=== PATIENT | male | born 1960 | race Caucasian/White ===

== ENCOUNTER → 2022-06-13 11:10 | Outpatient (BNVA) | payer OTHER, SELFPAY | PROVIDERS: PCP Nurse Practitioner Family; Visit Provider Student in an Organized Health Care Education/Training Program | DX: M65.331 Trigger finger, right middle finger (principal) | CPT/HCPCS: 20550; 99202 ==

== ENCOUNTER 2022-09-03 12:14 | Emergency (ER) | payer MEDICARE, SELFPAY ==
[2022-09-03 12:18] VITALS: BP 122/72; PULSE 65; RESP 18; TEMP 36.2; O2SAT 94; BMI 33.9
--- NOTE | 2022-09-03 12:18 | ED_ITS ---
HPI - Back Pain/Injury General Chief Complaint: Back Pain/Injury Stated Complaint: Sciatic pain Time Seen by Provider: 09/03/22 12:18 Source: patient Mode of arrival: ambulatory History of Present Illness HPI Narrative: 61-year-old male with past medical history of HLD, JEOVANNY, diabetes, sciatica, presenting to the ED complaining of low back pain radiating down left lower extremity x 11 days. States his sciatica is flaring s/p lifting his friend off the ground few days ago. Denies direct injury/trauma or fall, numbness, tingling, weakness, urine incontinence/retention, fever MD elicited complaint: back pain Onset (ago): day(s) Related Data Home Medications Medication Instructions Recorded Confirmed aspirin 81 mg tablet,delayed 81 mg PO DAILY 06/13/22 release atenolol 25 mg tablet 25 mg PO DAILY 06/13/22 atorvastatin 80 mg tablet 80 mg PO BEDTIME 06/13/22 baclofen 10 mg tablet 10 mg PO TID PRN 06/13/22 cholecalciferol (vitamin D3) 50 50 mcg PO DAILY 06/13/22 mcg (2,000 unit) tablet duloxetine 30 mg capsule,delayed 30 mg PO DAILY 06/13/22 release ezetimibe 10 mg tablet 10 mg PO DAILY 06/13/22 gabapentin 300 mg capsule 300 mg PO TID 06/13/22 lamotrigine 150 mg tablet 150 mg PO BID 06/13/22 lisinopril 2.5 mg tablet 2.5 mg PO DAILY 06/13/22 lorazepam 0.5 mg tablet 0.5 mg PO DAILY PRN 06/13/22 melatonin 5 mg capsule 5 mg PO BEDTIME 06/13/22 quetiapine 100 mg tablet 50 mg PO BEDTIME 06/13/22 sildenafil 50 mg tablet 50 mg PO DAILY PRN 06/13/22 Previous Rx's Medication Instructions Recorded prednisone 20 mg tablet 40 mg PO DAILY 5 days #10 tabs 09/03/22 Allergies Allergy/AdvReac Type Severity Reaction Status Date / Time Sulfa (Sulfonamide Allergy Unknown HIVES Unverified 06/13/22 11:15 Antibiotics) [SULFA (SULFONAMIDE ANTIBIOTICS)] varenicline Allergy Unknown Anaphylaxis Verified 06/13/22 11:15 From [facility] Allergy Unknown THROAT Uncoded 06/13/22 11:15 TONGUE SWELLING Review of Systems Review of Systems: Constitutional: No Fever, No Chills ENT/Mouth: No Ear Pain, No Nasal Congestion, No Sinus Pain, No Hoarseness, No sore throat, No Rhinorrhea, No Swallowing Difficulty Cardiovascular: No Chest Pain, No SOB Respiratory: No Cough, No Sputum, No Wheezing Gastrointestinal: No Nausea, No Vomiting, No Diarrhea, No Constipation, No Abdominal pain Genitourinary: No Dysuria, No Urinary Frequency, No Hematuria, No Urinary Incontinence/retention, No Urgency, No Flank Pain Musculoskeletal: + joint pain, No Myalgias, No Joint Swelling Skin: No Skin Lesions, No rash Neuro: No Weakness, No Numbness, No Paresthesias Yes all other systems are reviewed and are negative Constitutional: Constitutional: Reports as per [facility] Past Medical History Attestation statement: The following information was validated with the patient. Medical History Dyslipidemia Erectile dysfunction Major depression, recurrent Nicotine dependence Nontoxic thyroid nodule JEOVANNY (obstructive sleep apnea) Type 2 diabetes mellitus Surgical History History of back surgery History of shoulder surgery History of surgery Hx of CABG Hx of hernia repair Family History Family History Mother Colon cancer Liver cancer Father Medical history unknown Maternal Uncle Coronary artery disease Myocardial infarction Epilepsy Maternal Grandmother Type 2 diabetes mellitus Maternal Grandfather Respiratory abnormalities Brother Arthritis Stomach disorder Social History Social History Alcohol intake: former Year quit: 22y Patient Tobacco Use Status: Current everyday Tobacco user Cigarette Packs Per Day: 0.5 service: Yes Current occupational status: retired Physical Exam Vital Signs: Vital Signs: Last Vital Signs Temp 97.1 F 09/03/22 12:18 Pulse 65 09/03/22 12:18 Resp 18 09/03/22 12:18 BP 137/103 H 09/03/22 12:18 Pulse Ox 94 09/03/22 12:18 O2 Del Method 09/03/22 12:18 BMI result Body Mass Index 33.9 Const: General: cooperative, healthy appearing and no acute distress Orientation/consciousness: patient oriented x3 Limitations: no limitations HEENT: Head: Yes normal to inspection and Yes atraumatic Ears: hearing grossly normal bilaterally General nose exam: Normal external nose present Face and sinus: Yes normal facial exam Eyes: General: appearance normal, both eyes and all related structures EOM: EOMs intact bilaterally Neck: Neck: Yes normal visual inspection and Yes no meningeal signs Resp: Effort & Inspection: normal respiratory effort and no respiratory distress Cardio: Rate: regular rate Heart sounds: S1 normal heart sound present and S2 normal heart sound present GI: Inspection: Yes normal to inspection Palpation (GI): Soft to palpation, nontender, no guarding and not rigid Back/Spine/Pelvis: Other: No midline thoracic/lumbar spinous tenderness/step-off or deformity. Pain not reproducible on exam Skin: Rashes: no rashes Wounds: no wounds Neuro: Other: Strength intact throughout. No saddle anesthesia. Sensation intact to light touch. Neurovascular intact distally General: patient oriented x3, gait normal, tone normal, moves all extremities, no meningeal signs and no focal motor deficits Gait exam (Neuro): Normal gait present Motor exam (neuro): 5/5 motor strength present throughout Extrem: General: Yes normal to inspection Medical Decision Making Medical Decision Making MDM Narrative: 61-year-old male with past medical history of HLD, JEOVANNY, diabetes, sciatica, presenting to the ED complaining of low back pain radiating down left lower extremity x 11 days. On exam vital signs stable, NAD/nontoxic appearance, no midline spinous tenderness throughout or red flag symptoms. Patient already taking baclofen and Lidoderm patches. Requesting prednisone. Concern for sciatica res MSK pain/strain. Low suspicion for cauda equina, cord compression, epidural abscess or fracture plan: Pain control, PCP follow-up Differential Diagnosis Differential Diagnoses: The differential diagnosis associated with the presentation includes as above Prescription Management I considered prescription management with: Pain Medication Chronic Conditions Patient?s care impacted by: Diabetes and Hypertension Discharge Plan Discharge Clinical Impression: Sciatica Patient Disposition: Home, Self-Care Instructions: Sciatica (ED) Additional Instructions: Your pain is likely musculoskeletal/your sciatica Continue taking previously prescribed muscle relaxer and lidocaine patches. Prednisone as a steroid will help with inflammation. Have close follow-up with your doctor In addition take Tylenol at home If symptoms persist or worsen, pain becomes unbearable, you developed urinary retention or incontinence, or weakness return to the ED Prescriptions: New prednisone 20 mg tablet 40 mg PO DAILY 5 Days Qty: 10 0RF No Action aspirin 81 mg tablet,delayed release (DR/EC) 81 mg PO DAILY atenolol 25 mg tablet 25 mg PO DAILY atorvastatin 80 mg tablet 80 mg PO BEDTIME baclofen 10 mg tablet 10 mg PO TID PRN gabapentin 300 mg capsule 300 mg PO TID lamotrigine 150 mg tablet 150 mg PO BID lisinopril 2.5 mg tablet 2.5 mg PO DAILY lorazepam 0.5 mg tablet 0.5 mg PO DAILY PRN melatonin 5 mg capsule 5 mg PO BEDTIME sildenafil 50 mg tablet 50 mg PO DAILY PRN Rx Instructions: administer 30 minutes to 4 hours before activity cholecalciferol (vitamin D3) 50 mcg (2,000 unit) tablet 50 mcg PO DAILY duloxetine 30 mg capsule,delayed release(DR/EC) 30 mg PO DAILY ezetimibe 10 mg tablet 10 mg PO DAILY quetiapine 100 mg tablet 50 mg PO BEDTIME Referrals: Daria Guerin NP [Primary Care Provider] - 1 week
== END 2022-09-03 12:36 | disposition home or self-care (01) ==
PROVIDERS: Emergency Provider Student in an Organized Health Care Education/Training Program; PCP Nurse Practitioner Family
DX: M54.42 Lumbago with sciatica, left side (principal); E11.9 Type 2 diabetes mellitus without complications; I10 Essential (primary) hypertension; E78.5 Hyperlipidemia, unspecified; F17.210 Nicotine dependence, cigarettes, uncomplicated; Z79.82 Long term (current) use of aspirin; Z79.02 Long term (current) use of antithrombotics/antiplatelets; Z79.899 Other long term (current) drug therapy
CPT/HCPCS: 99282; 99283

== ENCOUNTER 2023-05-13 15:23 | Emergency (ER) | payer MEDICARE, SELFPAY | END 2023-05-13 16:38 | disposition left against medical advice (07) | PROVIDERS: Emergency Provider Emergency Medicine | DX: M79.646 Pain in unspecified finger(s) (principal) ==

== ENCOUNTER 2023-07-13 16:44 | Emergency (ER) | payer MEDICARE, SELFPAY ==
--- NOTE | ~2023-07-13 | XR_ITS ---
EXAMINATION: XR ANKLE, LEFT CLINICAL INFORMATION: Fracture COMPARISON: Images earlier today TECHNIQUE: AP, lateral, and mortise views of the left ankle. FINDINGS: Patient is in a plaster splint which obscures fine bony detail. Transverse oriented medial malleolus fracture is again noted to be laterally displaced although slightly improved from earlier today the obliquely oriented fracture through the distal fibula is also slightly less laterally displaced. There is mild valgus angulation of the tibiotalar joint space but overall the alignment has significantly improved from earlier today especially in the anterior posterior position. Prominent calcaneal heel spurs seen at the attachment point of the plantar aponeurosis and Achilles tendon. XR/XR ankle LT 2V IMPRESSION: Improved alignment from earlier today. There is persistent lateral displacement of the distal tibial and fibular fractures.
--- NOTE | ~2023-07-13 | XR_ITS ---
EXAMINATION: XR ANKLE, LEFT CLINICAL INFORMATION: Postreduction radiograph COMPARISON: Same day prior radiographs TECHNIQUE: Two views of the left ankle. XR/XR ankle LT min 3V FINDINGS/IMPRESSION: Overlying cast material obscures fine osseus detail. Again seen are displaced bimalleolar fractures with persistent malalignment and dislocation of the tibia with respect to the talus and worsening widening of the distal tibiofibular syndesmosis.
--- NOTE | ~2023-07-13 | XR_ITS ---
EXAMINATION: XR foot LT min 3V, XR ankle LT min 3V CLINICAL INFORMATION: Reason for Exam left ankle/foot pain s/p fall COMPARISON: None. TECHNIQUE: AP, lateral, and oblique views of the foot and ankle FINDINGS: Acute transversely oriented displaced medial malleolus fracture with lateral subluxation of the tibia with respect to the talus. Acute obliquely oriented mildly displaced fracture of the lateral malleolus. Well-corticated osseous fragment adjacent to the tip of the medial malleolus may reflect sequelae of prior more remote avulsion injury. Mild degenerative changes of the first metatarsophalangeal joint with small osteophytes. Soft tissue swelling about the ankle. No definite tibiotalar joint effusion. XR/XR ankle LT min 3V IMPRESSION: 1. Acute transversely oriented displaced medial malleolus fracture with lateral subluxation of the tibia with respect to the talus. 2. Acute obliquely oriented mildly displaced fracture of the lateral malleolus. Soft tissue swelling about the ankle. 3. Well-corticated osseous fragment adjacent to the tip of the medial malleolus may reflect sequelae of prior more remote avulsion injury. 4. Mild degenerative changes of the first metatarsophalangeal joint with small osteophytes.
--- NOTE | ~2023-07-13 | XR_ITS ---
EXAMINATION: XR foot LT min 3V, XR ankle LT min 3V CLINICAL INFORMATION: Reason for Exam left ankle/foot pain s/p fall COMPARISON: None. TECHNIQUE: AP, lateral, and oblique views of the foot and ankle FINDINGS: Acute transversely oriented displaced medial malleolus fracture with lateral subluxation of the tibia with respect to the talus. Acute obliquely oriented mildly displaced fracture of the lateral malleolus. Well-corticated osseous fragment adjacent to the tip of the medial malleolus may reflect sequelae of prior more remote avulsion injury. Mild degenerative changes of the first metatarsophalangeal joint with small osteophytes. Soft tissue swelling about the ankle. No definite tibiotalar joint effusion. XR/XR foot LT min 3V IMPRESSION: 1. Acute transversely oriented displaced medial malleolus fracture with lateral subluxation of the tibia with respect to the talus. 2. Acute obliquely oriented mildly displaced fracture of the lateral malleolus. Soft tissue swelling about the ankle. 3. Well-corticated osseous fragment adjacent to the tip of the medial malleolus may reflect sequelae of prior more remote avulsion injury. 4. Mild degenerative changes of the first metatarsophalangeal joint with small osteophytes.
--- NOTE | ~2023-07-13 | XR_ITS ---
EXAMINATION: XR ANKLE, LEFT CLINICAL INFORMATION: Post reduction ankle pain/fracture COMPARISON: Left ankle radiograph from 07/13/2023 None available. TECHNIQUE: AP, lateral, and mortise views of the left ankle. FINDINGS: Status post interval casting which obscures fine osseous and soft tissue detail. Redemonstration of fractures involving the medial malleolus and distal fibular diaphysis. There has been increased displacement of the distal tibia dorsally in relation to the talus as well, widening of the distal tibial fibular syndesmosis, and displacement of fracture fragments. Soft tissue swelling overlying the ankle. Plantar calcaneal heel spur. Achilles tendon enthesopathy. XR/XR ankle LT min 3V IMPRESSION: 1. Status post interval casting which obscures fine osseous and soft tissue detail. 2. Redemonstration of fractures involving the medial malleolus and distal fibular diaphysis. 3. Increased displacement of the distal tibia dorsally in relation to the talus as well, widening of the distal tibial fibular syndesmosis, and displacement of fracture fragments of the medial malleolus and distal fibula.
--- NOTE | 2023-07-13 16:59 | ED_ITS ---
HPI - Extremity Injury (Lower) General Chief Complaint: Extremity Injury, Lower Stated Complaint: ? left ankle fracture, fall down the stairs Time Seen by Provider: 07/13/23 18:24 Source: patient and RN notes reviewed Mode of arrival: ambulatory Limitations: no limitations History of Present Illness HPI Narrative: This is a 62-year-old male, with a history of dyslipidemia, JEOVANNY, type 2 diabetes, hypertension, presenting to the emergency department with complaints of left ankle pain status post mechanical fall which occurred this afternoon. Patient states that he accidentally slipped and fell down 5 steps. He immediately had pain in his left ankle. He has been unable to bear weight on his left ankle. Denies head strike or loss of consciousness. He is not on blood thinners. No history trauma to his left ankle in the past. No other complaints or concerns at this time. MD complaint: ankle injury Onset (ago): day(s) Injury: Right: ankle Type of Injury: inversion Place: home Severity: severe Relieving factors: nothing Exacerbating factors: weight bearing Associated symptoms: snap/pop sensation and swelling Other symptoms: none Related Data Home Medications Medication Instructions Recorded Confirmed aspirin 81 mg tablet,delayed 81 mg PO DAILY 06/13/22 release atenolol 25 mg tablet 25 mg PO DAILY 06/13/22 atorvastatin 80 mg tablet 80 mg PO BEDTIME 06/13/22 baclofen 10 mg tablet 10 mg PO TID PRN 06/13/22 cholecalciferol (vitamin D3) 50 50 mcg PO DAILY 06/13/22 mcg (2,000 unit) tablet duloxetine 30 mg capsule,delayed 30 mg PO DAILY 06/13/22 release ezetimibe 10 mg tablet 10 mg PO DAILY 06/13/22 gabapentin 300 mg capsule 300 mg PO TID 06/13/22 lamotrigine 150 mg tablet 150 mg PO BID 06/13/22 lisinopril 2.5 mg tablet 2.5 mg PO DAILY 06/13/22 lorazepam 0.5 mg tablet 0.5 mg PO DAILY PRN 06/13/22 melatonin 5 mg capsule 5 mg PO BEDTIME 06/13/22 quetiapine 100 mg tablet 50 mg PO BEDTIME 06/13/22 sildenafil 50 mg tablet 50 mg PO DAILY PRN 06/13/22 Previous Rx's Medication Instructions Recorded prednisone 20 mg tablet 40 mg (2 x 20 mg) PO DAILY 5 days 09/03/22 #10 tabs oxycodone 5 mg tablet 5 mg PO Q6H PRN severe pain (scale 07/13/23 score 7-10) #12 tabs Allergies Allergy/AdvReac Type Severity Reaction Status Date / Time Sulfa (Sulfonamide Allergy Unknown HIVES Verified 07/13/23 16:59 Antibiotics) [SULFA (SULFONAMIDE ANTIBIOTICS)] varenicline Allergy Unknown Anaphylaxis Verified 07/13/23 16:59 From [facility] Allergy Unknown THROAT Uncoded 06/13/22 11:15 TONGUE SWELLING Review of Systems 2 Review of Systems: Yes all other systems are reviewed and are negative Constitutional: Constitutional: Reports as per [facility] Past Medical History Attestation statement: The following information was validated with the patient. Medical History Type 2 diabetes mellitus JEOVANNY (obstructive sleep apnea) Nontoxic thyroid nodule Nicotine dependence Major depression, recurrent Erectile dysfunction Dyslipidemia Surgical History Hx of hernia repair Hx of CABG History of shoulder surgery History of back surgery History of surgery Family History Family History Mother Colon cancer Liver cancer Father Medical history unknown Maternal Uncle Coronary artery disease Myocardial infarction Epilepsy Maternal Grandmother Type 2 diabetes mellitus Maternal Grandfather Respiratory abnormalities Brother Arthritis Stomach disorder Social History Social History Alcohol intake: former Year quit: 22y Patient Tobacco Use Status: Current everyday Tobacco user Cigarette Packs Per Day: 0.5 Advance Directives: No Advance Directives Information Provided: No service: Yes Current occupational status: retired Physical Exam 2 Vital Signs: Vital Signs: Last Vital Signs Temp 97.8 F 07/13/23 17:00 Pulse 73 07/13/23 19:36 Resp 16 07/13/23 20:56 BP 127/77 07/13/23 19:36 Pulse Ox 97 07/13/23 19:36 O2 Del Method Room Air 07/13/23 19:36 BMI result Body Mass Index 35.2 Const: General: cooperative, comfortable and no acute distress O rientation/consciousness: patient oriented x3 Limitations: no limitations HEENT: Head: Yes normal to inspection, Yes normocephalic and Yes atraumatic Ears: hearing grossly normal bilaterally General nose exam: Normal external nose present Face and sinus: Yes normal facial exam Mouth: Normal oral and palatal mucosa present, oropharynx normal and moist mucous membranes Throat: Yes posterior oropharynx normal Eyes: General: appearance normal, both eyes and all related structures E yelids: Yes eyelids normal Conjunctivae: conjunctivae normal Sclerae: s clerae normal Pupils: Equal, round and reactive pupils present EOM: EOMs intact bilaterally Neck: Neck: Yes normal visual inspection, Yes full ROM and Yes no lymphadenopathy Lymphatic: no lymphadenopathy noted Chest: Chest palpation & inspection: normal inspection of the chest Resp: Effort & Inspection: normal respiratory effort and able to speak in complete sentences Auscultation: clear to auscultation bilaterally, no crackles, no rales, no rhonchi and no wheezes Cardio: Rate: regular rate Rhythm: regular rhythm Heart sounds: S1 normal heart sound present and S2 normal heart sound present GI: Inspection: Yes normal to inspection Skin: General skin exam: no rashes or lesions noted Trauma: no lacerations or abrasions Wounds: no wounds Neuro: General: patient oriented x3 and moves all extremities Cranial nerves: Yes Equal, round and reactive pupils present Extrem: Other: Obvious bony deformity noted to the lateral and medial malleoli. TTP to the Distal fibula. Distal pulse 2 + capillary refill less than 2 seconds. Able to wiggle toes. General: Yes normal to inspection Right upper extremity: normal to inspection Left upper extremity: normal to inspection Right lower extremity: normal to inspection Left lower extremity: normal to inspection Course Reevaluation(s) Reevaluation #1: Spoke to Dr. Murguia, hospitalist who states that he cannot admit if orthopedics is not going to do anything. He can stay in the ER for pain/Case Management if orthopedics is not willing to come in. Dr. Diane is requesting Orthopedics to come in to do reduction. Time: 19:17 Reevaluation #2: Two attempts made by my colleague Marco A Colon. During the hematoma block the distal tibia appear to be dislocated even without any interventions or traction. See joint reduction procedure note for further detail. This was done twice however still illustrating distal tibia displacement. I discussed this with Adwoa Wallace PA-C who reach out to Dr. Bobby. Dr. Bobby spoke to my attending physician, Dr. Diane, stating that he will be in the emergency room for possible conscious sedation for reduction and to be admitted to their service. Given sign-out to Marco A Colon PA-C pending orthopedic intervention. Time: 21:52 Reevaluation #3: Dr. Bobby, orthopedics came to evaluate the patient and reduce the dislocated fracture itself without any general anesthesia. Patient was placed in a posterior walking spine and or discussion with Orthopedics in the patient, the patient would like to be discharged home will follow-up with orthopedics on Saturday. Time: 22:40 Medications Administered Discontinued Medications Generic Name Dose Route Start Last Admin Trade Name Freq PRN Reason Stop Dose Admin Lidocaine HCl 10 ml 07/13/23 19:45 07/13/23 20:21 Lidocaine Hcl 1 % Mpf 30 Ml Vial INTRAARTIC 07/13/23 19:46 10 ml ONCE ONE Administration Protocol Morphine Sulfate 4 mg 07/13/23 20:52 07/13/23 20:56 Morphine Sulfate 4 Mg/Ml Cartridge IM 07/13/23 20:53 4 mg ONCE ONE Administration Protocol Ondansetron HCl 4 mg 07/13/23 20:52 07/13/23 20:56 Ondansetron Odt 4 Mg Tab.Rapdis TRANSLINGU 07/13/23 20:53 4 mg ONCE ONE Administration Oxycodone HCl 5 mg 07/13/23 19:01 07/13/23 19:32 Oxycodone Hcl Immed Release 5 Mg Tablet PO 07/13/23 19:02 5 mg ONCE ONE Administration Medical Decision Making Medical Decision Making [facility] Narrative: This is a 62-year-old male, with a past medical history of JEOVANNY, diabetes, hyperlipidemia, stent placed in 2011, presenting to the emergency department with complaints of left ankle pain and swelling status post mechanical fall which occurred today. An x-ray was obtained revealing acute transversely oriented displaced medial malleoli fracture with lateral subluxation of the tibia with respect to the talus. There is also an acute obliquely oriented mildly displaced fracture of the lateral malleolus. Also of note well corticated osseous fragment adjacent to the tip of the medial malleolus. I discussed findings with orthopedic PA, Adwoa Wallace, who suggest attempted reduction with splinting and can follow-up outpatient. I discussed this with my attending physician, Dr. Diane, as I believe that patient needs to be admitted or closely followed given significant fracture, she agrees and believes that he needs to be admitted. Differential Diagnosis Differential Diagnoses: The differential diagnosis associated with the presentation includes Fracture, dislocation, sprain, strain, contusion Admission/Observation Consideration of admission/observation: Escalation of care including admission/observation considered Escalation of care including admission was considered given significant fracture Consult Healthcare Provider Management of the patient was discussed with: Hospitalist and Window Shade Installer Dr. Murguia, hospitalist RUMA [address]ont Dr[address] orthopedist Lab Data 07/13/23 21:59 07/13/23 21:59 Labs: Lab Results 07/13/23 Range/Units 21:59 WBC 9.3 (4.8-10.8) X10*3/uL RBC 4.76 (4.60-5.80) X10*6/uL Hgb 14.3 (14.0-18.0) g/dl Hct 42.3 (42.0-52.0) % MCV 88.9 (80.0-98.0) fL MCH 30.0 (27.0-33.0) pg MCHC 33.8 (31.0-36.0) g/dl RDW 14.1 (11.0-16.0) % Plt Count 193 (160-400) X10*3/uL MPV 10.6 (9.4-12.4) fL Immature Gran % (Auto) 0.2 (0.0-0.4) % Neut % (Auto) 57.4 (45-73) % Lymph % (Auto) 34.1 (20-40) % Bibb % (Auto) 6.4 (2-11) % Eos % (Auto) 1.5 (0-4) % Baso % (Auto) 0.4 (0-2) % Lymph # (Auto) 3.2 (1.2-4.9) X10*3/uL Bibb # (Auto) 0.6 (0.1-1.2) X10*3/uL Eos # (Auto) 0.1 (0.0-0.4) X10*3/uL Baso # (Auto) 0.0 (0.0-0.2) X10*3/uL Abs Immat Gran (auto) 0.02 (0.00-0.03) X10*3/uL Absolute Neuts (auto) 5.3 (2.0-8.3) x10*3/uL Absolute Nucleated RBC 0.000 (0.0-0.012) X10*3/uL Nucleated RBC % (auto) 0.0 (0.0-0.2) /100WBC Sodium 139 (135-145) mmol/L Potassium 4.2 (3.3-5.1) mmol/L Chloride 103 (96-108) mmol/L Carbon Dioxide 27 (22-29) mmol/L Anion Gap 13 (12-20) BUN 12 (9-16) mg/dL Creatinine 1.22 (0.5-1.4) mg/dL Estim Creat Clear Calc 69.1 Estimated GFR > 60 Random Glucose 159 H (60-115) mg/dL Calcium 10.0 (8.4-10.2) mg/dL Total Bilirubin 0.5 (0.0-1.0) mg/dL Direct Bilirubin 0.2 (0.0-0.5) mg/dL AST 53 H (5-37) U/L ALT 44 H (0-40) U/L Alkaline Phosphatase 64 (39-117) U/L Total Protein 8.1 H (6.5-8.0) g/dL Albumin 4.5 (3.5-5.0) g/dL Radiology Impression Discussion of test interpretation with radiology: I have reviewed the radiologist's reading. Radiologist Impression: EXAMINATION: XR foot LT min 3V, XR ankle LT min 3V CLINICAL INFORMATION: Reason for Exam left ankle/foot pain s/p fall COMPARISON: None. TECHNIQUE: AP, lateral, and oblique views of the foot and ankle FINDINGS: Acute transversely oriented displaced medial malleolus fracture with lateral subluxation of the tibia with respect to the talus. Acute obliquely oriented mildly displaced fracture of the lateral malleolus. Well-corticated osseous fragment adjacent to the tip of the medial malleolus may reflect sequelae of prior more remote avulsion injury. Mild degenerative changes of the first metatarsophalangeal joint with small osteophytes. Soft tissue swelling about the ankle. No definite tibiotalar joint effusion. XR/XR ankle LT min 3V IMPRESSION: 1. Acute transversely oriented displaced medial malleolus fracture with lateral subluxation of the tibia with respect to the talus. 2. Acute obliquely oriented mildly displaced fracture of the lateral malleolus. Soft tissue swelling about the ankle. 3. Well-corticated osseous fragment adjacent to the tip of the medial malleolus may reflect sequelae of prior more remote avulsion injury. 4. Mild degenerative changes of the first metatarsophalangeal joint with small osteophytes. Dictated By: Danuta Hutchison MD EXAMINATION: XR foot LT min 3V, XR ankle LT min 3V CLINICAL INFORMATION: Reason for Exam left ankle/foot pain s/p fall COMPARISON: None. TECHNIQUE: AP, lateral, and oblique views of the foot and ankle FINDINGS: Acute transversely oriented displaced medial malleolus fracture with lateral subluxation of the tibia with respect to the talus. Acute obliquely oriented mildly displaced fracture of the lateral malleolus. Well-corticated osseous fragment adjacent to the tip of the medial malleolus may reflect sequelae of prior more remote avulsion injury. Mild degenerative changes of the first metatarsophalangeal joint with small osteophytes. Soft tissue swelling about the ankle. No definite tibiotalar joint effusion. XR/XR foot LT min 3V IMPRESSION: 1. Acute transversely oriented displaced medial malleolus fracture with lateral subluxation of the tibia with respect to the talus. 2. Acute obliquely oriented mildly displaced fracture of the lateral malleolus. Soft tissue swelling about the ankle. 3. Well-corticated osseous fragment adjacent to the tip of the medial malleolus may reflect sequelae of prior more remote avulsion injury. 4. Mild degenerative changes of the first metatarsophalangeal joint with small osteophytes. Dictated By: Danuta Hutchison MD EXAMINATION: XR ANKLE, LEFT CLINICAL INFORMATION: Post reduction ankle pain/fracture COMPARISON: Left ankle radiograph from 07/13/2023 None available. TECHNIQUE: AP, lateral, and mortise views of the left ankle. FINDINGS: Status post interval casting which obscures fine osseous and soft tissue detail. Redemonstration of fractures involving the medial malleolus and distal fibular diaphysis. There has been increased displacement of the distal tibia dorsally in relation to the talus as well, widening of the distal tibial fibular syndesmosis, and displacement of fracture fragments. Soft tissue swelling overlying the ankle. Plantar calcaneal heel spur. Achilles tendon enthesopathy. XR/XR ankle LT min 3V IMPRESSION: 1. Status post interval casting which obscures fine osseous and soft tissue detail. 2. Redemonstration of fractures involving the medial malleolus and distal fibular diaphysis. 3. Increased displacement of the distal tibia dorsally in relation to the talus as well, widening of the distal tibial fibular syndesmosis, and displacement of fracture fragments of the medial malleolus and distal fibula. Dictated By: Zahraa Galloway MD EXAMINATION: XR ANKLE, LEFT CLINICAL INFORMATION: Postreduction radiograph COMPARISON: Same day prior radiographs TECHNIQUE: Two views of the left ankle. XR/XR ankle LT min 3V FINDINGS/IMPRESSION: Overlying cast material obscures fine osseus detail. Again seen are displaced bimalleolar fractures with persistent malalignment and dislocation of the tibia with respect to the talus and worsening widening of the distal tibiofibular syndesmosis. Dictated By: Danuta Hutchison MD Procedures Procedure Narrative Procedure Narrative: I was asked to assist with reduction of the left ankle. The I initially locally anesthetize the patient's fibular fracture with a hematoma block. I was able to aspirate dark red blood and injected 5 cc of lidocaine into the hematoma. On the medial aspect of the leg at the location of the tibia fracture regcin to aspirate blood from the hematoma fracture but was unable to do so. I injected 2 cc lidocaine around the area. During this, the patient's foot was supported by a pillow. Prior to any attempt at any reduction, the patient experienced increasing pain and the left tibia appeared to slide anteriorly compared to the distal portion/foot. I immediately removed the pillow and supported the foot to attempt reduction. Clinically, the deformity improved significantly just with gravity by supporting the left great toe and we splinted with a posterior walking splint and sugar-tong. X-ray showed anterior displacement of tibia compared to the foot. And then remove the splints, again reduced the fracture with good clinical improvement. Repeat imaging the foot still appears displaced Orthopedic Joint Reduction Joint #1: Time Out Performed: Yes Side: left Joint Reduction Location: ankle Analgesia: hematoma block Local Anesthesia: lidocaine 1% Amount of anesthesic used (mL): 4 Shoulder Technique Used (if applicable): other (First great toe pulling) Post-reduction neuro exam: intact Post-reduction vascular: intact Post Reduction X-Ray Obtained: Yes Post Reduction X-Ray Results: not reduced Splint Applied: Yes Patient Tolerated Procedure: well Additional Comments: Joint reduction performed by Marco A Colon PA-C. During hematoma block, patient had worsening pain and it appeared that the tibia was becoming displaced. It is unclear whether not pillow underneath foot head cause displacement. However there is no forceful movements that caused this displacement to occur. Slight traction applied by pulling on great toe, it appears that the tibia slowly went back into place. Patient's ankle was splinted and x-ray was performed. X-ray revealing increased displacement of the distal tibia dorsally in relation to the talus and widening of the distal fibular syndesmosis. The splint was removed, and slight traction was applied to great toe again, revealing tibia appearing to be reduced in the proper location, the ankle was splinted and re-x-rayed which still revealed displacement of the distal tibia. Patient neurovascularly intact capillary refill less than 2 seconds. Discharge Plan Discharge Clinical Impression: Bimalleolar fracture of left ankle Patient Disposition: Home, Self-Care Instructions: Ankle Fracture (ED) Additional Instructions: Use ibuprofen/Tylenol as needed for pain Elevate your ankle above your heart while resting Use oxycodone for severe or breakthrough pain This may make you sleepy, did not drink alcohol or drive after taking Follow-up with orthopedics at the number provided You should receive a phone call on Saturday, if you do not, call their office Prescriptions: New oxycodone 5 mg tablet 5 mg PO Q6H PRN (Reason: severe pain (scale score 7-10)) Qty: 12 0RF Rx Instructions: Partial Fill upon patient request. No Action prednisone 20 mg tablet 40 mg PO DAILY 5 Days Qty: 10 0RF aspirin 81 mg tablet,delayed release (DR/EC) 81 mg PO DAILY atenolol 25 mg tablet 25 mg PO DAILY atorvastatin 80 mg tablet 80 mg PO BEDTIME baclofen 10 mg tablet 10 mg PO TID PRN gabapentin 300 mg capsule 300 mg PO TID lamotrigine 150 mg tablet 150 mg PO BID lisinopril 2.5 mg tablet 2.5 mg PO DAILY lorazepam 0.5 mg tablet 0.5 mg PO DAILY PRN melatonin 5 mg capsule 5 mg PO BEDTIME sildenafil 50 mg tablet 50 mg PO DAILY PRN Rx Instructions: administer 30 minutes to 4 hours before activity cholecalciferol (vitamin D3) 50 mcg (2,000 unit) tablet 50 mcg PO DAILY duloxetine 30 mg capsule,delayed release(DR/EC) 30 mg PO DAILY ezetimibe 10 mg tablet 10 mg PO DAILY quetiapine 100 mg tablet 50 mg PO BEDTIME Referrals: Javad Bobby MD [Physician] - (left ankle fracture)
[2023-07-13 17:00] VITALS: BP 90/46; PULSE 63; RESP 20; TEMP 36.6; O2SAT 95; BMI 35.2
[2023-07-13] MEDS: oxyCODONE HCl Immed Release 5 MG TABLET PO (19:32)
[2023-07-13 19:36] VITALS: BP 127/77; PULSE 73; RESP 16; O2SAT 97
[2023-07-13] MEDS: Lidocaine HCl 1 % MPF 30 ML VIAL 10 ML INTRAARTIC (20:21)
--- NOTE | 2023-07-13 20:33 | PC.NURSE ---
landon su/maile at bedside w rn's- splint applied after lido injected by landon. +CMS. repeat x-rays being taken. pt reports oxy/lido have helped his pain at this time. no respiratory distress. talking w/o issue. family at bedside
[2023-07-13 20:56] VITALS: RESP 16
[2023-07-13] MEDS: Morphine Sulfate 4 MG/ML CARTRIDGE IM (20:56)
[2023-07-13] MEDS: Ondansetron ODT 4 MG TAB.RAPDIS TRANSLINGU (20:56)
[2023-07-13 22:05] LABS: MANUAL DIFF FLAG NO
[2023-07-13 22:11] LABS: Basophils Percent Auto 0.4 % (0-2); Eosinophils Absolute Auto 0.1 X10*3/uL (0.0-0.4); Eosinophils Percent Auto 1.5 % (0-4); Hematocrit 42.3 % (42.0-52.0); Hemoglobin 14.3 g/dl (14.0-18.0); Imm Gran Abs Auto 0.02 X10*3/uL (0.00-0.03); Imm Gran Pct Auto 0.2 % (0.0-0.4); Lymphocytes Absolute Auto 3.2 X10*3/uL (1.2-4.9); Lymphocytes Percent Auto 34.1 % (20-40); Mean Corpuscular HGB Conc 33.8 g/dl (31.0-36.0); Mean Corpuscular Volume 88.9 fL (80.0-98.0); Mean Platelet Volume 10.6 fL (9.4-12.4); Monocytes Absolute Auto 0.6 X10*3/uL (0.1-1.2); Monocytes Percent Auto 6.4 % (2-11); Neutrophils Absolute Auto 5.3 x10*3/uL (2.0-8.3); Neutrophils Percent Auto 57.4 % (45-73); Platelet Count 193 X10*3/uL (160-400); Red Blood Count 4.76 X10*6/uL (4.60-5.80); Red Cell Distribution Width 14.1 % (11.0-16.0); White Blood Count 9.3 X10*3/uL (4.8-10.8)
[2023-07-13 22:25] LABS: Alanine Aminotransferase 44 U/L (0-40); Albumin Level 4.5 g/dL (3.5-5.0); Alkaline Phosphatase 64 U/L (39-117); Anion Gap 13 (12-20); Aspartate Amino Transferase 53 U/L (5-37); Bilirubin Direct 0.2 mg/dL (0.0-0.5); Bilirubin Total 0.5 mg/dL (0.0-1.0); Blood Urea Nitrogen 12 mg/dL (9-16); Carbon Dioxide 27 mmol/L (22-29); Chloride 103 mmol/L (96-108); Creatinine Clr Calc Pharmacy 69.1; Estimated Glomerular Filt Rate > 60; Glucose Random 159 mg/dL (60-115); Potassium 4.2 mmol/L (3.3-5.1); Sodium 139 mmol/L (135-145); Total Protein 8.1 g/dL (6.5-8.0)
[2023-07-13 22:48] LABS: INTERNATIONAL NORM RATIO 1.1 (0.9-1.1); Prothrombin Time 12.9 SEC (11.1-13.3)
== END 2023-07-13 22:59 | disposition home or self-care (01) ==
PROVIDERS: Physician Assistant; Physician Assistant Medical; Emergency Provider Student in an Organized Health Care Education/Training Program; PCP Family Medicine
DX: S82.842A Displaced bimalleolar fracture of left lower leg, initial encounter for closed fracture (principal); W10.8XXA Fall (on) (from) other stairs and steps, initial encounter; Y93.89 Activity, other specified; Y92.9 Unspecified place or not applicable; Y99.9 Unspecified external cause status
CPT/HCPCS: 27810; 36415; 73600; 73610; 73630; 80048; 80076; 85025; 85610; 96372; 99284; J2270

== ENCOUNTER 2023-07-15 11:22 | Outpatient (AMB) | payer MEDICARE, SELFPAY ==
[2023-07-15 11:28] VITALS: BMI 35.2
--- NOTE | 2023-07-15 11:28 | MHC.OFFVIS ---
Intake Vital Signs 07/15/23 11:28 Height 5 ft 6 in Weight 218 lb BMI 35.2 Intake Visit Reasons: fc-Left ankle hailey fracture Intake Note: Maximo is a 62 year old male who presents today for a evaluation of his left ankle pain, DOI 07/13/23. Patient states that he accidentally slipped and fell down 5 steps. He has been unable to bear weight on his left ankle. Allergies Sulfa (Sulfonamide Antibiotics) [SULFA (SULFONAMIDE ANTIBIOTICS)] Allergy (Unknown, Verified 07/15/23 11:28) HIVES varenicline Allergy (Unknown, Verified 07/15/23 11:28) Anaphylaxis From CHANTIX Allergy (Unknown, Uncoded 06/13/22 11:15) THROAT TONGUE SWELLING HPI fc-Left ankle hailey fracture HPI Details 62-year-old male who presents in the office today, as a new patient, for an evaluation of left ankle pain. The patient presented to the ED on 07/13/2023 status post a mechanical fall when he slipped and fell down [address] Bobby was available to see the patient while in the ED to reduce the ankle. He was placed in posterior walking splint and referred to orthopedics. Patient has an allergy history, as follows: -Sulfa; Hives -Varenicline; Anaphylaxis -Chantix; throat and tongue swelling Patient is currently taking, as follows: -Aspirin 81 mg PO daily -Atenolol 25 mg PO daily -Atorvastatin 80 mg PO bedtime -Baclofen 10 PO TID PRN -Cholecalciferol 50 mcg PO daily -Duloxetine 30 mg PO daily -Ezetimibe 10 mg PO daily -Gabapentin 300 mg PO TID -Lamotrigine 150 mg PO BID -Lisinopril 2.5 mg PO daily -Lorazepam 0.5 mg PO daily PRN -Melatonin 5 mg PO bedtime -Oxycodone 5 mg PO Q6H PRN -Prednisone 40 mg PO daily -Quetiapine 50 mg PO bedtime -Sildenafil 50 mg PO daily PRN Patient has a medical history, as follows: -Type 2 diabetes mellitus -Obstructive sleep apnea -Nontoxic thyroid nodule -Nicotine dependence -Depression -Erectile dysfunction -Dyslipidemia Patient has a surgical history, as follows: -History of hernia repair; 2013 -History of CABG; 2011 -History of shoulder surgery; 2011, Right -History of back surgery; 2008 -History of Lesions on vocal cords removed; 09/2016 Dr Baron Patient has a social history, as follows: -Tobacco; 0.5 cigarettes per day PFSH Medical History Type 2 diabetes mellitus JEOVANNY (obstructive sleep apnea) Nontoxic thyroid nodule Nicotine dependence Major depression, recurrent Erectile dysfunction Dyslipidemia Surgical History Hx of hernia repair Hx of CABG History of shoulder surgery History of back surgery History of surgery Family History Mother Colon cancer Liver cancer Father Medical history unknown Maternal Uncle Coronary artery disease Myocardial infarction Epilepsy Maternal Grandmother Type 2 diabetes mellitus Maternal Grandfather Respiratory abnormalities Brother Arthritis Stomach disorder Social History Alcohol intake: former Year quit: 22y Patient Tobacco Use Status: Current everyday Tobacco user Cigarette Packs Per Day: 0.5 service: Yes Current occupational status: retired Review of Systems Const All systems reviewed & are unremarkable except as noted in HPI and below Physical Exam Vital Signs: BMI result Body Mass Index 35.2 Const General: cooperative and no acute distress Orientation/consciousness: patient oriented x3 Resp Effort & Inspection: normal respiratory effort and able to speak in complete sentences Cardio Peripheral pulses: Peripheral pulses 2+ throughout Skin General skin exam: no rashes or lesions noted Neuro General: patient oriented x3 Extrem Other: Left ankle: Patient presents in a posterior splint. Able to move and wiggle all digits. Sensation in all digits is intact. Capillary refill is brisk. Assessment & Plan Assessment & Plan (1) Bimalleolar fracture of left ankle: Code(s): S82.842A - Displaced bimalleolar fracture of left lower leg, initial encounter for closed fracture Qualifiers: Encounter type: initial encounter Fracture type: closed Qualified Code(s): S82.842A - Displaced bimalleolar fracture of left lower leg, initial encounter for closed fracture Plan Mr. Blankenship is a 62-year-old male who presents in the office today, as a new patient, for an evaluation of left ankle pain. The patient presented to the ED on 07/13/2023 status post a mechanical fall when he slipped and fell down [address] Bobby was available to see the patient while in the ED to reduce the ankle. He was placed in posterior walking splint and referred to orthopedics. Patient has an allergy history, as follows: -Sulfa; Hives -Varenicline; Anaphylaxis -Chantix; throat and tongue swelling Patient is currently taking, as follows: -Aspirin 81 mg PO daily -Atenolol 25 mg PO daily -Atorvastatin 80 mg PO bedtime -Baclofen 10 PO TID PRN -Cholecalciferol 50 mcg PO daily -Duloxetine 30 mg PO daily -Ezetimibe 10 mg PO daily -Gabapentin 300 mg PO TID -Lamotrigine 150 mg PO BID -Lisinopril 2.5 mg PO daily -Lorazepam 0.5 mg PO daily PRN -Melatonin 5 mg PO bedtime -Oxycodone 5 mg PO Q6H PRN -Prednisone 40 mg PO daily -Quetiapine 50 mg PO bedtime -Sildenafil 50 mg PO daily PRN Patient has a medical history, as follows: -Type 2 diabetes mellitus -Obstructive sleep apnea -Nontoxic thyroid nodule -Nicotine dependence -Depression -Erectile dysfunction -Dyslipidemia Patient has a surgical history, as follows: -History of hernia repair; 2013 -History of CABG; 2011 -History of shoulder surgery; 2011, Right -History of back surgery; 2008 -History of Lesions on vocal cords removed; 09/2016 Dr Baron Patient has a social history, as follows: -Tobacco; 0.5 cigarettes per day I discussed in detail the procedure and what to expect pre and post operatively. We discussed the risks, benefits and alternatives to the surgery as well as the rehabilitation course. The risks; which include, but are not limited to infection, bleeding, nerve injury, ongoing pain, swelling, and stiffness, perioperative risk of injury to bones and soft tissues, and blood clots. I have answered all questions and with their understanding they have consented to move forward with a Left ankle ORIF to be performed by Dr. Javad Bobby. Follow up will be at the post operative appointment, or sooner if needed. X-rays of the left ankle, obtained on 07/13/2023 post reduction, revealed: Improved alignment from earlier today. There is persistent lateral displacement of the distal tibial and fibular fractures. Patient Instructions: Scribed for Adwoa Wallace PA-C by Kim Bhakta, medical technician assistant, on 07/15/2023 at 11:25 am, EST. Coding Level of Care Code New Pt Level 4 (47440) Diagnoses Closed bimalleolar fracture of left ankle, initial encounter S82.842A Encounter type: initial encounter Fracture type: closed
== END 2023-07-15 11:54 | disposition home or self-care (01) ==
PROVIDERS: PCP Family Medicine; Visit Provider Physician Assistant
DX: S82.842A Displaced bimalleolar fracture of left lower leg, initial encounter for closed fracture (principal)
CPT/HCPCS: 99204

== ENCOUNTER → 2023-07-15 11:22 | Outpatient (BNVA) | payer MEDICARE, SELFPAY | PROVIDERS: PCP Family Medicine; Visit Provider Physician Assistant | DX: S82.842A Displaced bimalleolar fracture of left lower leg, initial encounter for closed fracture (principal); W10.9XXA Fall (on) (from) unspecified stairs and steps, initial encounter; Y93.01 Activity, walking, marching and hiking; Y92.9 Unspecified place or not applicable; Y99.8 Other external cause status; Z91.85 Personal history of military service | CPT/HCPCS: 99202 ==

== ENCOUNTER 2023-07-16 10:10 | Day surgery (SDC) | payer MEDICARE, SELFPAY ==
--- NOTE | 2023-07-15 13:30 | P.CONAN_ITS ---
Documented by User: Ankita Matos NP 07/15/23 14:01 HPI - Anesthesia Eval Consult details Narrative: 62yo M for Left Ankle Fracture ORIF CAD/MO s/p CABG x 1 in 2011. Denies any recent CP/SOB with minimal activity per T/C 07/15/23. States last f/u with cardiology ~ 1 year ago. Looking for new cad designer. Per 04/2022 cardiology office visit note, CAD and EF stable for 1 year f/u PMFSH Active Problems All Active Problems (Updated 07/15/23 @ 12:04 by Kim Bhakta) Trigger finger, right middle finger (Acute) Past Medical History Medical History Type 2 diabetes mellitus JEOVANNY (obstructive sleep apnea) Nontoxic thyroid nodule Nicotine dependence Major depression, recurrent Erectile dysfunction Dyslipidemia Family History Family History Mother Colon cancer Liver cancer Father Medical history unknown Maternal Uncle Coronary artery disease Myocardial infarction Epilepsy Maternal Grandmother Type 2 diabetes mellitus Maternal Grandfather Respiratory abnormalities Brother Arthritis Stomach disorder Surgical History Surgical History Hx of hernia repair Hx of CABG History of shoulder surgery History of back surgery History of surgery Social History Alcohol intake: former Year quit: 22y Patient Tobacco Use Status: Former Tobacco user Quit Date: One year Cigarette Packs Per Day: 0.5 Use of substances other than those prescribed or required for medical reasons: No Are you DNR?: No Advance Directives: No Advance Directives Information Provided: Yes service: Yes Current occupational status: retired [employer] Allergies Allergy/AdvReac Type Severity Reaction Status Date / Time Sulfa (Sulfonamide Allergy Unknown HIVES Verified 07/15/23 11:28 Antibiotics) [SULFA (SULFONAMIDE ANTIBIOTICS)] varenicline Allergy Unknown Anaphylaxis Verified 07/15/23 11:28 From CHANTIX Allergy Unknown THROAT Uncoded 06/13/22 11:15 TONGUE SWELLING Home Medications Medication Instructions Recorded Confirmed Last Taken Type aspirin 81 mg tablet,delayed 81 mg PO DAILY 06/13/22 Unknown History release atenolol 25 mg tablet 25 mg PO DAILY 06/13/22 Unknown History atorvastatin 80 mg tablet 80 mg PO BEDTIME 06/13/22 Unknown History baclofen 10 mg tablet 10 mg PO TID PRN 06/13/22 Unknown History cholecalciferol (vitamin D3) 50 50 mcg PO DAILY 06/13/22 Unknown History mcg (2,000 unit) tablet duloxetine 30 mg capsule,delayed 30 mg PO DAILY 06/13/22 Unknown History release ezetimibe 10 mg tablet 10 mg PO DAILY 06/13/22 Unknown History gabapentin 300 mg capsule 300 mg PO TID 06/13/22 Unknown History lamotrigine 150 mg tablet 150 mg PO BID 06/13/22 Unknown History lisinopril 2.5 mg tablet 2.5 mg PO DAILY 06/13/22 Unknown History lorazepam 0.5 mg tablet 0.5 mg PO DAILY PRN 06/13/22 Unknown History melatonin 5 mg capsule 5 mg PO BEDTIME 06/13/22 Unknown History quetiapine 100 mg tablet 50 mg PO BEDTIME 06/13/22 Unknown History sildenafil 50 mg tablet 50 mg PO DAILY PRN 06/13/22 Unknown History Exam Pertinent Lab Results Pertinent Lab Results: Laboratory Tests 07/13/23 21:59 WBC 9.3 Hgb 14.3 Hct 42.3 Plt Count 193 Sodium 139 Potassium 4.2 Chloride 103 Carbon Dioxide 27 BUN 12 Creatinine 1.22 Assessment and Plan Assessment Anesthesia Assessment: Chart Reviewed Documented by User: Antwon Mak MD 07/16/23 12:48 PMFSH Active Problems All Active Problems (Updated 07/15/23 @ 12:04 by Kim Bhakta) Trigger finger, right middle finger (Acute) Past Medical History Medical History Type 2 diabetes mellitus JEOVANNY (obstructive sleep apnea) Nontoxic thyroid nodule Nicotine dependence Major depression, recurrent Erectile dysfunction Dyslipidemia Family History Family History Mother Colon cancer Liver cancer Father Medical history unknown Maternal Uncle Coronary artery disease Myocardial infarction Epilepsy Maternal Grandmother Type 2 diabetes mellitus Maternal Grandfather Respiratory abnormalities Brother Arthritis Stomach disorder Family history of problems with anesthesia: No Surgical History Surgical History Hx of hernia repair Hx of CABG History of shoulder surgery History of back surgery History of surgery History of Problems with Anesthesia: No Social History Alcohol intake: former Year quit: 22y Patient Tobacco Use Status: Former Tobacco user Quit Date: One year Cigarette Packs Per Day: 0.5 Use of substances other than those prescribed or required for medical reasons: No Are you DNR?: No Advance Directives: No Advance Directives Information Provided: Yes service: Yes Current occupational status: retired [employer] Allergies Allergy/AdvReac Type Severity Reaction Status Date / Time Sulfa (Sulfonamide Allergy Unknown HIVES Verified 07/15/23 11:28 Antibiotics) [SULFA (SULFONAMIDE ANTIBIOTICS)] varenicline Allergy Unknown Anaphylaxis Verified 07/15/23 11:28 From CHANTIX Allergy Unknown THROAT Uncoded 06/13/22 11:15 TONGUE SWELLING Home Medications Medication Instructions Recorded Confirmed Last Taken Type aspirin 81 mg tablet,delayed 81 mg PO DAILY 06/13/22 Unknown History release atenolol 25 mg tablet 25 mg PO DAILY 06/13/22 Unknown History atorvastatin 80 mg tablet 80 mg PO BEDTIME 06/13/22 Unknown History baclofen 10 mg tablet 10 mg PO TID PRN 06/13/22 Unknown History cholecalciferol (vitamin D3) 50 50 mcg PO DAILY 06/13/22 Unknown History mcg (2,000 unit) tablet duloxetine 30 mg capsule,delayed 30 mg PO DAILY 06/13/22 Unknown History release ezetimibe 10 mg tablet 10 mg PO DAILY 06/13/22 Unknown History gabapentin 300 mg capsule 300 mg PO TID 06/13/22 Unknown History lamotrigine 150 mg tablet 150 mg PO BID 06/13/22 Unknown History lisinopril 2.5 mg tablet 2.5 mg PO DAILY 06/13/22 Unknown History lorazepam 0.5 mg tablet 0.5 mg PO DAILY PRN 06/13/22 Unknown History melatonin 5 mg capsule 5 mg PO BEDTIME 06/13/22 Unknown History quetiapine 100 mg tablet 50 mg PO BEDTIME 06/13/22 Unknown History sildenafil 50 mg tablet 50 mg PO DAILY PRN 06/13/22 Unknown History Exam Airway Mallampati Class: III TM Dist: >3cm Neck ROM: Limited Heart: rrr Lungs: cta Assessment and Plan Assessment Anesthesia Assessment: Anesthesia Plan Discussed Final Anesthetic Review Family History of Problems with Anesthesia: No History of Problems with Anesthesia: No NPO: Yes ASA Class: III Final Preanesthetic Review: No Changes in Pt Med Stat, Meds/Allgs Chart Reviewed, Consent Obtained/Reviewed and Anes Risks/Benef Reviewed Patient Risk: Intermediate Procedure Risk: Intermediate Anesthetic Plan Anesthetic Plan: GA, Regional Block and Agree w/ Assess. and Plan Disposition: Standard PACU
--- NOTE | ~2023-07-16 | FL_ITS ---
EXAMINATION: XR FLUOROSCOPY WITH IMAGES CLINICAL INFORMATION: Left ankle ORIF. COMPARISON: 07/13/2023 TECHNIQUE: Fluoroscopy Supervised By: Dr. Javad Bobby. Fluoroscopy Time: 0.2 minutes. Cumulative Dose: 0.800 mGy. DAP: 0.0139 Gycm2. Images: 4. FINDINGS: Four radiographs show a new screw placement in the medial malleolus along with a new plate and screw device overlying the distal fibula. FL/FL guidance in OR IMPRESSION: Fluoroscopy provided for ORIF left ankle fracture. Please see Dr. Javad Bobby's procedure note for full details.
--- NOTE | 2023-07-16 10:34 | ECG_ITS ---
Test Reason : cad, cabg Blood Pressure : / mmHG Vent. Rate : 064 BPM Atrial Rate : 064 BPM P-R Int : 180 ms QRS Dur : 088 ms QT Int : 418 ms P-R-T Axes : 039 -17 050 degrees QTc Int : 431 ms Normal sinus rhythm Normal ECG When compared with ECG of 11-DEC-2013 11:30, No significant change was found Referred By: Ankita Matos Electronically Signed By:LULA CODY MD
[2023-07-16 10:41] VITALS: BMI 35.2
[2023-07-16 10:51] VITALS: BP 120/62; PULSE 66; RESP 16; TEMP 36.4; O2SAT 95
[2023-07-16 11:02] LABS: Glucose, Whole Blood 115 mg/dL (60-115)
[2023-07-16] MEDS: Lactated Ringers 1,000 ML 100 ML IVCONT (11:09)
[2023-07-16 15:51] VITALS: BP 129/68; PULSE 69; RESP 15; TEMP 36.1; O2SAT 98
[2023-07-16 15:55] VITALS: BP 115/41; PULSE 70; RESP 15; O2SAT 96
[2023-07-16 16:00] VITALS: BP 112/56; PULSE 66; RESP 15; O2SAT 95
[2023-07-16 16:05] VITALS: BP 111/65; PULSE 70; RESP 16; O2SAT 93
[2023-07-16 16:20] VITALS: BP 107/58; PULSE 66; RESP 16; TEMP 36.4; O2SAT 95
--- NOTE | 2023-07-26 16:23 | W.PM.OPN ---
Operative Note Operative Note Date of Service: 07/16/23 Narrative: Date of Service: 07/16/23 Pre-op diagnosis: left ankle fracture Post-op diagnosis: same Procedure: 1-ORIF left bimalleolar ankle fracture 2-ORIF syndesmosis Implants: Styker lateral locking plate Styrker 4.0 partially threaded cancellous screws x 2 [place] Screven Synchfix Surgeon: Javad Bobby MD Anesthesia: GETA and regional Was an Investor Relations Associate used for this Procedure?: Yes Investor Relations Associate: Adwoa Wallace Estimated blood loss (mL): 20 Tourniquet time (min): 60 IV fluids (mL): 1,000 Pathology: none sent Condition: stable Disposition: PACU Procedure in detail: Patient was brought to the operating room and placed supine on the operative table. All bony prominences were well padded and a time-out was called to identify proper site proper procedure proper surgeon. IV antibiotics per weight were administered. I began by exsanguinating limb is slightly tourniquet to 300 mm Hg. I then made a standard posterolateral incision over the fibula. Full-thickness flaps were taken down to the fibular shaft and distal fibula. The fracture was identified and cleaned with a combination of curette, rongeur and irrigation. A lobster claw was used to provisionally reduce the fracture and a 6 hole distal fibular locking plate was applied using standard AO technique. Biplanar fluoroscopy was used to confirm hardware position and fracture reduction. Once I was satisfied that both of these were acceptable I irrigated copiously and turned my attention to the medial side. The transverse medial malleolar fracture was identified after skin incision. Full-thickness skin flaps were developed and, With a sharp tenaculum, the fracture was reduced. 2 threaded K-wires were then placed from distal to proximal and perpendicular to the fracture. Biplanar fluoroscopy was used to confirm positioning and then they were overdrilled and 2 40 mm 4.0 partially-threaded cannulated cancellous screws were placed across the fracture. I was satisfied with the position and the fracture reduction based on biplanar fluoroscopy. This syndesmosis was tested using external rotation test and was found to be unstable. Therefore I drilled my Screven Synch fix hole from lateral to medial at an angle of 20deg anterior parallel to the joint at the level of the physeal scar. The syndesmosis was then tightened with a C-clamp and the Synch fix tightened. An ER test was repeated and the syndesmosis was stable. Final flouro images were captured and all instrumentation was removed and copious irrigation was performed. Absorbable suture and chayito were used for closure and the patient was placed into sterile dressings and a well-padded posterior splint. Tourniquet was let down and the patient was extubated brought to recovery room in stable condition there were no known complications.
== END 2023-07-16 16:32 | disposition home or self-care (01) ==
PROVIDERS: PCP Family Medicine; Visit Provider Orthopaedic Surgery
PROC: (CPT 27814; principal; 2023-07-16 12:40)
DX: S82.842A Displaced bimalleolar fracture of left lower leg, initial encounter for closed fracture (principal); W10.8XXA Fall (on) (from) other stairs and steps, initial encounter; Y93.9 Activity, unspecified; Y92.9 Unspecified place or not applicable; Y99.9 Unspecified external cause status; E11.9 Type 2 diabetes mellitus without complications; E78.5 Hyperlipidemia, unspecified; G47.33 Obstructive sleep apnea (adult) (pediatric); F17.210 Nicotine dependence, cigarettes, uncomplicated; Z95.1 Presence of aortocoronary bypass graft; Z79.82 Long term (current) use of aspirin; Z79.899 Other long term (current) drug therapy
CPT/HCPCS: 27814; 27829; 82947; 93005; C1713; J0690; J2371; J2405; J2704

== ENCOUNTER → 2023-07-16 10:10 | Outpatient (BNV) | payer MEDICARE, SELFPAY | PROVIDERS: PCP Family Medicine; Visit Provider Orthopaedic Surgery | DX: S82.842A Displaced bimalleolar fracture of left lower leg, initial encounter for closed fracture (principal) | CPT/HCPCS: 27814; 27829 ==

== ENCOUNTER 2023-07-24 08:28 | Outpatient (AMB) | payer MEDICARE, SELFPAY ==
--- NOTE | 2023-07-24 08:37 | A.OFFVIS_ITS ---
Intake Intake Visit Reasons: PO-Lt Ankle ORIF 07/16 NE Intake Note: Maximo a 62 year old male presents today for a post operative left ankle ORIF, DOS 07/16/23 NE. Patient reports his current pain level is 5 out of 10. He has concerns of chills&sweats, spasms and muscle cramps in his thigh. He states with prolong sitting his sciatica acts up and is not able to do his exercises due to his ankle. He has discomfort in splint. Allergies Sulfa (Sulfonamide Antibiotics) [SULFA (SULFONAMIDE ANTIBIOTICS)] Allergy (Unknown, Verified 07/15/23 11:28) HIVES varenicline Allergy (Unknown, Verified 07/15/23 11:28) Anaphylaxis From CHANTIX Allergy (Unknown, Uncoded 06/13/22 11:15) THROAT TONGUE SWELLING HPI PO-Lt Ankle ORIF 07/16 NE HPI Details 62-year-old male who returns to the [facility] today for post-op left ankle ORIF, 07/16/[address] Bobby. He continues to have pain in his ankle and rates the pain as 5 on the scale of 0-10. He does c/o chills & sweats, spasms and muscle cramps in his thigh. He also reports his sciatica acts up with prolonged sitting and he is unable to exercises due to his ankle. He states he has discomfort in the splint. He is doing well overall and has no other concerns today. [facility] Medical History Type 2 diabetes mellitus JEOVANNY (obstructive sleep apnea) Nontoxic thyroid nodule Nicotine dependence Major depression, recurrent Erectile dysfunction Dyslipidemia Surgical History Hx of hernia repair Hx of CABG History of shoulder surgery History of back surgery History of surgery Family History Mother Colon cancer Liver cancer Father Medical history unknown Maternal Uncle Coronary artery disease Myocardial infarction Epilepsy Maternal Grandmother Type 2 diabetes mellitus Maternal Grandfather Respiratory abnormalities Brother Arthritis Stomach disorder Social History Alcohol intake: former Year quit: 22y Patient Tobacco Use Status: Former Tobacco user Quit Date: One year Cigarette Packs Per Day: 0.5 service: Yes Current occupational status: retired Review of Systems Const All systems reviewed & are unremarkable except as noted in HPI and below Physical Exam Extrem Other: Left ankle: Incision clean, dry and intact. Elyssa intact. He has no erythema or drainage. Minimal swelling. Sensation and pulses are intact. Office Procedures Casting/Splints 46616-[id number] Leg Cast Application Procedure code (CPT) selection complete Assessment & Plan Assessment & Plan (1) Status post open reduction with internal fixation (ORIF) of fracture of ankle: Code(s): Z98.890 - Other specified postprocedural states; Z87.81 - Personal history of (healed) traumatic fracture Plan Percy will remain intact. The incision was cleaned and xeroform and gauze was applied. He was placed in a short leg cast. He will remain non weight bearing for another 5 weeks. He will return in 1 week for cast off, x-rays and staple removal. Patient Instructions: Scribed for Sherri Lopez PA-C, by Segundo Ferrell medical assistant dermatology, on 07/24/2023 at 8:30 AM EST. I, Sherri Lopez PA-C, have personally reviewed and agree with the information entered by the scribe. Coding Level of Care Code Global (77733) Diagnoses Status post open reduction with internal fixation (ORIF) of fracture of ankle Z98.890; Z87.81 CPT Codes Casting - CPT: 34731-Xaikm Leg Cast Application ([id number])
== END 2023-07-24 10:01 | disposition home or self-care (01) ==
PROVIDERS: PCP Family Medicine; Visit Provider Physician Assistant
DX: S82.842D Displaced bimalleolar fracture of left lower leg, subsequent encounter for closed fracture with routine healing (principal); Z48.89 Encounter for other specified surgical aftercare
CPT/HCPCS: 29405; 99024

== ENCOUNTER → 2023-07-24 08:28 | Outpatient (BNVA) | payer MEDICARE, SELFPAY | PROVIDERS: PCP Family Medicine; Visit Provider Physician Assistant | DX: Z98.890 Other specified postprocedural states (principal); Z87.81 Personal history of (healed) traumatic fracture | CPT/HCPCS: 29405 ==

== ENCOUNTER 2023-08-01 11:19 | Outpatient (AMB) | payer MEDICARE, SELFPAY ==
--- NOTE | 2023-08-01 11:42 | A.OFFVIS_ITS ---
Intake Intake Visit Reasons: PO-ORIF left ankle-cast off with xrays Intake Note: Maximo a 62 year old male presents today for a post operative left ankle ORIF, DOS 07/16/23 NE. Cast removed in office and xrays updated. Patient reports mild stiffness and soreness. Allergies Sulfa (Sulfonamide Antibiotics) [SULFA (SULFONAMIDE ANTIBIOTICS)] Allergy (Unknown, Verified 08/01/23 11:43) HIVES varenicline Allergy (Unknown, Verified 08/01/23 11:43) Anaphylaxis From CHANTIX Allergy (Unknown, Uncoded 08/01/23 11:43) THROAT TONGUE SWELLING HPI PO-ORIF left ankle-cast off with xrays HPI Details 62-year-old male who returns to the [facility] today for post-op left ankle ORIF, 07/16/[address] Bobby. He continues to have mild stiffness and soreness in his ankle but is doing well overall. He has no other concerns today. FORMERLY [facility], [facility]1983 Medical History Type 2 diabetes mellitus JEOVANNY (obstructive sleep apnea) Nontoxic thyroid nodule Nicotine dependence Major depression, recurrent Erectile dysfunction Dyslipidemia Surgical History Hx of hernia repair Hx of CABG History of shoulder surgery History of back surgery History of surgery Family History Mother Colon cancer Liver cancer Father Medical history unknown Maternal Uncle Coronary artery disease Myocardial infarction Epilepsy Maternal Grandmother Type 2 diabetes mellitus Maternal Grandfather Respiratory abnormalities Brother Arthritis Stomach disorder Social History Alcohol intake: former Year quit: 22y Patient Tobacco Use Status: Former Tobacco user Quit Date: One year Cigarette Packs Per Day: 0.5 service: Yes Current occupational status: retired Review of Systems Const All systems reviewed & are unremarkable except as noted in HPI and below Physical Exam Extrem Other: Left ankle: Incision clean, dry and intact. Mild swelling surrounding the foot. Sensation and pulses are present. Office Procedures Casting/Splints 25826-[id number] Leg Cast Application Procedure code (CPT) selection complete Results Reviewed Results Reviewed: Xrays were obtained in the office today and personally reviewed by me of the left ankle show intact hardware, ankle mortise intact. Assessment & Plan Assessment & Plan (1) Status post open reduction with internal fixation (ORIF) of fracture of ankle: Code(s): Z98.890 - Other specified postprocedural states; Z87.81 - Personal history of (healed) traumatic fracture Plan [place] removed today, steri strips applied. He was placed in a short leg cast non weight bearing which he will wear for 4 weeks, at which point he will return in 4 weeks for cast off and x-rays, sooner if needed. Orders: Orders XR ankle LT min 3V Today M25.572 - Pain in left ankle and joints of left foot Patient Instructions: Scribed for Sherri Lopez PA-C, by Segundo Ferrell emergency medical services coordinator, on 08/01/2023 at 11:30 AM EST. I, Sherri Lopez PA-C, have personally reviewed and agree with the information entered by the scribe. Coding Level of Care Code Global (36543) Diagnoses Status post open reduction with internal fixation (ORIF) of fracture of ankle Z98.890; Z87.81 CPT Codes Casting - CPT: 88040-[id number] Leg Cast Application ([id number])
== END 2023-08-01 12:49 | disposition home or self-care (01) ==
PROVIDERS: PCP Family Medicine; Visit Provider Physician Assistant
DX: S82.842D Displaced bimalleolar fracture of left lower leg, subsequent encounter for closed fracture with routine healing (principal); W10.8XXD Fall (on) (from) other stairs and steps, subsequent encounter
CPT/HCPCS: 29405; 99024

== ENCOUNTER 2023-08-01 12:37 | Outpatient (REF) | payer MEDICARE, SELFPAY ==
--- NOTE | ~2023-08-01 | XR_ITS ---
EXAMINATION: XR ANKLE, LEFT CLINICAL INFORMATION: Pain in left ankle and joints of foot. COMPARISON: 07/16/2023 fluoroscopic guidance image. 07/13/2023 left ankle radiographs. TECHNIQUE: AP, lateral, and mortise views of the left ankle. FINDINGS: Surgical chayito along the medial and lateral aspects of the ankle with diffuse soft tissue swelling and joint effusion. Oblique screw traverses the previously demonstrated transverse fracture of the medial malleolus with near anatomic alignment. There is a button along the medial cortical aspect of the distal tibia. Small ossicles inferior to the medial malleolus with tiny ossific fragment along the medial aspect of the medial malleolus. Lateral plate with multiple screws traverse the previously demonstrated oblique fracture through the distal fibula with near anatomic alignment. Dorsal and plantar calcaneal spurs. Hardware appears intact. XR/XR ankle LT min 3V IMPRESSION: Status post open reduction and internal fixation of fractures of the distal tibia and fibula as detailed above.
== END 2023-08-01 12:38 | disposition home or self-care (01) ==
LOC: HO.HOSX 12:37
PROVIDERS: Visit Provider Physician Assistant
DX: S82.842D Displaced bimalleolar fracture of left lower leg, subsequent encounter for closed fracture with routine healing (principal)
CPT/HCPCS: 29405; 73610; 99212

== ENCOUNTER 2023-09-12 12:14 | Outpatient (REF) | payer MEDICARE, SELFPAY ==
--- NOTE | ~2023-09-12 | XR_ITS ---
EXAMINATION: XR ANKLE, LEFT CLINICAL INFORMATION: Pain. COMPARISON: Radiograph left ankle 08/01/2023. TECHNIQUE: AP, lateral, and mortise views of the left ankle. FINDINGS: Lateral fixation plate in the distal tibia with multiple traversing screws. Obliquely oriented screws in the medial malleolus with additional oval-shaped hard were along the medial surface of the medial malleolus. Hardware is in similar positioning to prior. No evidence of hardware fracture or malfunctioning. Bimalleolar fractures in near-anatomic alignment, similar to prior with interval osseous bridging manifested by last distinct fracture lines. Decreased soft tissue swelling. No interval injury. XR/XR ankle LT min 3V IMPRESSION: 1. Intact hardware. 2. Healing bimalleolar fractures in near-anatomic alignment. 3. Decreased soft tissue swelling.
== END 2023-09-12 12:15 | disposition home or self-care (01) ==
LOC: HO.HOSX 12:14
PROVIDERS: Visit Provider Physician Assistant
DX: M25.572 Pain in left ankle and joints of left foot (principal); Z96.662 Presence of left artificial ankle joint; Z98.890 Other specified postprocedural states; Z87.81 Personal history of (healed) traumatic fracture
CPT/HCPCS: 73610; 99212

== ENCOUNTER 2023-09-12 13:35 | Outpatient (AMB) | payer MEDICARE, SELFPAY ==
--- NOTE | 2023-09-12 14:09 | A.OFFVIS_ITS ---
Intake Intake Visit Reasons: OV-Lt Ankle ORIF 07/16 NE -cast off with xrays Intake Note: Maximo a 62 year old male presents today for a post operative left ankle ORIF, DOS 07/16/23 NE. Cast off and xrays updated. Patient reports he is doing well, states intermittent electrical shocks in his ankle and toes. Allergies Sulfa (Sulfonamide Antibiotics) [SULFA (SULFONAMIDE ANTIBIOTICS)] Allergy (Unknown, Verified 09/12/23 14:31) HIVES varenicline Allergy (Unknown, Verified 09/12/23 14:31) Anaphylaxis From CHANTIX Allergy (Unknown, Uncoded 09/12/23 14:31) THROAT TONGUE SWELLING HPI OV-Lt Ankle ORIF 07/16 NE -cast off with xrays HPI Details 62-year-old male who returns to the [facility] today for a follow-up of left ankle ORIF, 07/16/23, with Dr. Bobby. He continues to have intermittent ?electrical shock? sensation in his ankle and toes however he is doing well otherwise. He has no other concerns today. [facility] Medical History Type 2 diabetes mellitus JEOVANNY (obstructive sleep apnea) Nontoxic thyroid nodule Nicotine dependence Major depression, recurrent Erectile dysfunction Dyslipidemia Surgical History Hx of hernia repair Hx of CABG History of shoulder surgery History of back surgery History of surgery Family History Mother Colon cancer Liver cancer Father Medical history unknown Maternal Uncle Coronary artery disease Myocardial infarction Epilepsy Maternal Grandmother Type 2 diabetes mellitus Maternal Grandfather Respiratory abnormalities Brother Arthritis Stomach disorder Social History Alcohol intake: former Year quit: 22y Patient Tobacco Use Status: Former Tobacco user Quit Date: One year Cigarette Packs Per Day: 0.5 service: Yes Current occupational status: retired Review of Systems Const All systems reviewed & are unremarkable except as noted in HPI and below Physical Exam Extrem Other: Left ankle: Incision clean, dry and intact. Mild swelling surrounding the foot. Sensation and pulses are present. Results Reviewed Results Reviewed: Xrays were obtained in the office today and personally reviewed by me of the left ankle show intact hardware, ankle mortise intact. Assessment & Plan Assessment & Plan (1) Status post open reduction with internal fixation (ORIF) of fracture of ankle: Code(s): Z98.890 - Other specified postprocedural states; Z87.81 - Personal history of (healed) traumatic fracture Plan He was transitioned to tall walking boot weight bearing as tolerated. He will begin a course of physical therapy to work on ROM, gait training and proprioceptive training. I would like to see him back in 6 weeks with x-rays, sooner if needed. Orders: Orders XR ankle LT min 3V Today M25.572 - Pain in left ankle and joints of left foot PT Evaluation and Treatment Today Z87.81 - Personal history of (healed) traumatic fracture, Z98.890 - Other specified postprocedural states Patient Instructions: Scribed for Sherri Lopez PA-C, by Segundo Ferrell medical photographer, on 09/12/2023 at 1:45 PM EST. I, Sherri Lopez PA-C, have personally reviewed and agree with the information entered by the scribe. Coding Level of Care Code Global (40298) Diagnoses Status post open reduction with internal fixation (ORIF) of fracture of ankle Z98.890; Z87.81
== END 2023-09-12 14:36 | disposition home or self-care (01) ==
PROVIDERS: PCP Family Medicine; Visit Provider Physician Assistant
DX: Z98.890 Other specified postprocedural states (principal); Z87.81 Personal history of (healed) traumatic fracture
CPT/HCPCS: 99024

== ENCOUNTER 2023-10-24 11:50 | Outpatient (REF) | payer MEDICARE, SELFPAY ==
--- NOTE | ~2023-10-24 | XR_ITS ---
EXAMINATION: XR ANKLE, LEFT CLINICAL INFORMATION: Pain in left ankle and joints of foot. COMPARISON: 09/13/2023 radiographs left ankle. TECHNIQUE: AP, lateral, and mortise views of the left ankle. FINDINGS: Redemonstration of lateral fixation plate in the distal tibia with multiple traversing screws. Redistribution of obliquely-oriented screws in the medial malleolus with oval-shaped hardware along the medial surface of the medial malleolus. Hardware is similar in position. Redemonstration of bimalleolar fractures in near-anatomic alignment. Fracture lines are less distinct, suggesting some interval osseous bridging. XR/XR ankle LT min 3V IMPRESSION: Redemonstration of bimalleolar fractures in near anatomic alignment. Fracture lines are less distinct, suggesting some interval osseous bridging. Hardware appears stable status post ORIF.
== END 2023-10-24 11:51 | disposition home or self-care (01) ==
LOC: HO.HOSX 11:50
PROVIDERS: Visit Provider Physician Assistant
DX: M25.572 Pain in left ankle and joints of left foot (principal); Z87.81 Personal history of (healed) traumatic fracture; Z98.890 Other specified postprocedural states
CPT/HCPCS: 73610; 99212

== ENCOUNTER 2023-10-24 14:34 | Outpatient (AMB) | payer MEDICARE, SELFPAY ==
--- NOTE | 2023-10-24 14:51 | MHC.OFFVIS ---
Intake Intake Visit Reasons: ov-ORIF left ankle 07/16/23 Intake Note: Maximo a 62 year old male presents today for a follow up s/p left ankle ORIF, DOS 07/16/23 NE. Xrays updated. Patient reports he is doing well, he continues to work with PT. States intermittent burning sensation in his ankle and occasional shooting pains. He continues to wear boot as instructed. Allergies Sulfa (Sulfonamide Antibiotics) [SULFA (SULFONAMIDE ANTIBIOTICS)] Allergy (Unknown, Verified 10/24/23 15:38) HIVES varenicline Allergy (Unknown, Verified 10/24/23 15:38) Anaphylaxis From CHANTIX Allergy (Unknown, Uncoded 10/24/23 15:38) THROAT TONGUE SWELLING HPI ov-ORIF left ankle 07/16/23 HPI Details 62-year-old male who returns to the office today for a follow-up of left ankle ORIF, 07/16/[address] Bobby. He reports he has burning sensation and occasional shooting pain in his ankle. He is working with physical therapy as instructed. He has no other concerns today. [facility] Medical History Type 2 diabetes mellitus JEOVANNY (obstructive sleep apnea) Nontoxic thyroid nodule Nicotine dependence Major depression, recurrent Erectile dysfunction Dyslipidemia Surgical History Hx of hernia repair Hx of CABG History of shoulder surgery History of back surgery History of surgery Family History Mother Colon cancer Liver cancer Father Medical history unknown Maternal Uncle Coronary artery disease Myocardial infarction Epilepsy Maternal Grandmother Type 2 diabetes mellitus Maternal Grandfather Respiratory abnormalities Brother Arthritis Stomach disorder Social History Alcohol intake: former Year quit: 22y Patient Tobacco Use Status: Former Tobacco user Quit Date: One year Cigarette Packs Per Day: 0.5 service: Yes Current occupational status: retired Review of Systems Const All systems reviewed & are unremarkable except as noted in HPI and below Physical Exam Extrem Other: Left ankle: Incision clean, dry and intact. Mild swelling surrounding the foot. Sensation and pulses are present. Results Reviewed Results Reviewed: Xrays were obtained in the office today and personally reviewed by me of the left ankle show intact hardware, ankle mortise intact. Assessment & Plan Assessment & Plan (1) Status post open reduction with internal fixation (ORIF) of fracture of ankle: Code(s): Z98.890 - Other specified postprocedural states; Z87.81 - Personal history of (healed) traumatic fracture Plan He will continue work with physical therapy to improve his strength and gait training. He will transition to a lace up ankle brace into a regular street shoe. He will increase activity as tolerated and see us back as needed. Orders: Orders XR ankle LT min 3V Today M25.572 - Pain in left ankle and joints of left foot Patient Instructions: Scribed for Sherri Lopez PA-C, by Segundo Ferrell medical transcription supervisor, on 10/24/2023 at 2:45 PM EST. I, Sherri Lopez PA-C, have personally reviewed and agree with the information entered by the scribe. Coding Level of Care Code Est Pt Level 3 (49380) Diagnoses Status post open reduction with internal fixation (ORIF) of fracture of ankle Z98.890; Z87.81
== END 2023-10-24 15:39 | disposition home or self-care (01) ==
PROVIDERS: PCP Family Medicine; Visit Provider Physician Assistant
DX: S82.842D Displaced bimalleolar fracture of left lower leg, subsequent encounter for closed fracture with routine healing (principal)
CPT/HCPCS: 99213

== ENCOUNTER 2023-12-06 13:00 | Outpatient (RCR) | payer MEDICARE, SELFPAY ==
--- NOTE | 2023-10-03 15:19 | MHC.PT.OE ---
[facility] [place] Office [place] Office [place] Office [address] Davian Macias [address] [phone] F: [phone] F: [phone] F: [phone] F: [phone] Physical Therapy Evaluation Evaluation Date: 10/03/23 Current Condition Diagnosis: S/P Lt ANKLE ORIF 07/16/23 (1-ORIF left bimalleolar ankle fracture AND 2-ORIF syndesmosis) Onset Date: 07/13/23 Date of Surgery: 07/16/23 Chief Complaint/ Current Level of Function: 62-year-old male, presented to the emergency department 07/13/23 with complaints of left ankle pain status post mechanical fall which occurred same day. Patient states that he accidentally slipped and fell down 5 steps. He immediately had pain in his left ankle. He has been unable to bear weight on his left ankle. An x-ray was obtained revealing acute transversely oriented displaced medial malleoli fracture with lateral subluxation of the tibia with respect to the talus. There was also an acute obliquely oriented mildly displaced fracture of the lateral malleolus. Also of note well corticated osseous fragment adjacent to the tip of the medial malleolus. HE WAS D/C'D HOME AND F/U W [facility]TH[facility] THE FOLLOWING SATURDAY; HE UNDERWENT ORIF 07/16/23 AND WAS D/C'D HOME THAT DAY IN A SPLINT x APPROX 1 WK, HE WAS THEN CASTED AND NWB Lt LE x 6 WKS, HE HAD A SCOOTER FOR THE [facility], AT [facility] F/U 09/12/23: He was transitioned to tall walking boot weight bearing as tolerated. He will begin a course of physical therapy to work on ROM, gait training and proprioceptive training. HE RESIDES W HIS GIRLFRIEND IN A 1 LEVEL HOME, 1 STEP INTO HOME W/O RAILING; HE IS INDEP W DRESSING, REQ SOME ASSIST W SHOWERING/ IN AND OUT OF TUB Prior Level of Function/Occupation: ACTIVE , INDEP PRIOR TO INJURY-> [employer]-> HE ENJOYS WALKING IN [place] AND COLLECTING [place]OCK[place] HE IS RETIRED FROM A [employer] Diagnostic Imaging: X-Ray Patient Goals and Expectations: RETURN TO PRE-INJURY STATUS Past Medical History: Type 2 diabetes mellitus; JEOVANNY (obstructive sleep apnea); Nontoxic thyroid nodule; Nicotine dependence; Major depression, recurrent; Erectile dysfunction; Dyslipidemia; hernia repair; Hx of 2012 [place] -> CABG; History of Rt shoulder surgery; History of back surgery ALLERGIES: SULFA, CHANTIX, VARENICLINE Medications: ASA, ATENOLOL, ATORVASTATIN, BACLOFEN, VIT D3; DULOXETINE, EZETIMIBE, GABAPENTIN, LAMOTRIGINE; LISINOPRIL, LORAZEPAM, MELATONIN, SILDENAFIL, QUETIPINE, METFORMIN Precautions/ Contraindications: as of 09/12/23 Lt LE WBAT IN Lt TALL WALKING BOOT W CRUTCHES Outcome Measure: LEFI 35/80 Pain Pain Score: 4 Pain Scale Used: Numeric (0 - 10) Pain Location/ Description: GENERAL LEFT ANKLE PAIN INTERM SHOCK TYPE PAIN RADIATES FROM ANKLE TO GREAT TOE OCCASS SWELLS Aggravating Factors: PROLONGED STANDING (COOKING) INCR GAIT W CRUTCHES Alleviating Factors: TYLENOL ICE ELEVATION Objective Findings Posture: Rounded Shoulders Lt ILIAC CREST ELEV Skin & Soft Tissue/ Palpation: LEFT LAT MALL/ DISTAL TIBIA 9CM VERT WELL HEALED INCISION; 4CM INCISION Lt MEDIAL MALL W SMALL SCAB AT PROX END APPROX 0.5 CM; (-) DRAINAGE GIRTH LEFT DISTAL LE: BASE OF TOES 24.8 CM; MID FOOT 26.2 CM; MALLEOLUS 28.2 CM; 10 CM VERTICAL FROM LAT MALL 25.1 CM Gait/ Functional Mobility: BILAT CRUTCHES AND LEFT TALL WALKING BOOT , TOE TOUCH INDEP SIT <-> STAND TRANSFERS ALL SURFACES WELL BED MOB CURRENTLY UNABLE TO SQUAT, CAN MINI HIP HINGE, WBAT Lt W COMPEN Wt SHIFT Rt AROM (PROM) Strength Cervical Spine Flexion: Extension: Lateral Flexion: Rotation: Cervical Comments: Flexion: Extension: Lateral Flexion: Rotation: Other: Shoulder Flexion: Extension: Abduction: ER: IR: Apley ER: Apley IR: Comments: Flexion: Extension: Abduction: Adduction: ER: IR: Other: Elbow Flexion: Extension: Pronation: Supination: Comments: Flexion: Extension: Pronation: Supination: Wrist Flexion: Wrist Extension: Other: Lumbar Spine Flexion: Extension: Lateral Flexion: Rotation: Comments: Transverse abdominus: Extensors: Other: Hip Flexion: WFL FRANCHESCA Extension: 20* FRANCHESCA Abduction: WFL FRANCHESCA Adduction: WFL FRANCHESCA ER: IR: Comment: SUPINE HS Lt 130*, Rt 135* Flexion: Rt 5/5; Lt 5-/5 Extension: Rt 5-/5, Lt 4+/5 Abduction: Rt 5-/5; Lt 4+/5 Adduction: FRANCHESCA 5-/5 ER: IR: Other: Knee Flexion: WFL FRANCHESCA Extension: WFL FRANCHESCA Comments: Patella Mobility: Flexion: Rt 5-/5; Lt AT LEAST 3/5 Extension: Rt 5-/5; Lt AT LEAST 3/5 Other: Ankle Dorsiflexion: Rt 5*; Lt -6* Plantarflexion: Rt 55*; Lt 35* Inversion: Rt 25*, Lt 8* Eversion: Rt 10*, Lt 0* Comments: Dorsiflexion: Plantarflexion: Inversion: Eversion: Comments: Rt GROSSLY 5-/5 Lynne Assessment: Sacroiliac Assessment: Muscle Length: Special Tests: Vitals: BP: HR: O2SAT: RR: Other: Balance: Neurological Screen: Biceps DTR: Brachioradialis DTR: Triceps DTR: Patella DTR: Achilles DTR: Other: Dermatomes: Sensation: FRANCHESCA LEs = AND INTACT Myotomes: Patient Education Primary Language Ug[place]an Machine Maintenance Servicer Required No Who was Educated Patient Readiness for Learning Accepting Current Knowledge Minimal, needs reinforcement Education Needs ADL's Disease Information Equipment Use Exercise Pain Teaching Method Verbal Demonstration Handouts How did Patient Demonstrate Learning Patient demonstrates Patient verbalizes Needs reinforcement Barriers to Learning None Assessment Assessment: 62 YO MALE REF TO PT W H/O FALLING DOWN STAIRS ON 09/12/22 AND SUSTAINING A LEFT BIMALLEOLAR ANKLE FRACTURE, WHICH WAS REPAIRED W AN ORIF 09/15/22 (ORIF syndesmosis ) HE IS CURRENTLY 11 WKS POST-OP OF 10/01/23 -> HE WAS IMMOB-> CASTED, NWB Lt LE UNTIL ORTHO F/U ON 09/12/23 AT WHICH TIME HIS CAST WAS REMOVED , ISSUED A TALL WALKINGBOOT AND CLEARED FOR WBAT Lt LE. THE Pt RESIDES IN A 1 LEVEL HOME. HE PRESENTS W POST-OP FINDINGS OF DECR Lt ANKLE ROM; HYPOMOBILE SCARS MED/LAT MALL; LIMITED FUNCTIONAL MOBILITY (Lt TALL BOOT AND CRUTCHES), DECR STRENGTH IN Lt DISTAL LE, MILD DISTAL Lt LE EDEMA, AND FLUCTUATING Lt ANKEL PAIN. HE WOULD BENEFIT FROM PT TO GUIDE HIM IN HIS POST-OP COURSE, WITH ULTIMATE GOAL OF INDEP FUNCT MOB. Rehabilitation Potential: Good Plan of Care Frequency and Duration 2 x WK x 8 WKS Short Term Goals *DECREASE Lt ANKLE PAIN *IMPROVE Lt MED AND LAT ANKLE INCISIONAL SCAR MOBILITY *GRAD IMPROVE ROM Lt ANKLE *ENHANCE GAIT , WBAT Lt TALL BOOT *INITIATE HEP Jail Goals *Pt DEMON EFFICIENT GAIT MECH ON LEVEL AND STAIRS W/O ASST DEVICE *INDEP HEP AND SX MGMT TECHN *Pt GRAD RESUME REG ADLs, GAIT ON UNEVEN TERRAIN; WBAT Lt LE, EVIDENT W IMPROVED LEFI (35/80 AT EVAL) *THE Pt REGAIN WFL STRENGTH IN Lt LE *WFL SQUAT [facility] Treatment Plan Therapeutic Exercise Dynamic Therapeutic Activities Neuromuscular Re-ed Manual Therapies Gait Home Exercise Program Patient Education Hot or Cold Pack Reviewed/ Agreed with Student Documentation: Therapist: Electronically signed by: AL CHAPA,PT Please sign and return to therapist. Thank you for your referral.
--- NOTE | 2023-12-06 15:15 | MHC.PT.DC ---
[facility] [place] Office [place] Office [place] Office [address] Davian Macias [address] [phone] F: [phone] F: [phone] F: [phone] F: [phone] Physical Therapy Discharge Report Diagnosis: S/P Lt ANKLE ORIF 07/16/23 (1-ORIF left bimalleolar ankle fracture AND 2-ORIF syndesmosis) Date of Surgery: 07/16/23 Date of Evaluation: 10/03/23 Date of Discharge: 12/06/23 Treatments to Date: 13 Cancellations to Date: 0 No Shows to Date: 0 Discharge Status: Achieved Goals Improved Function Independent with HEP Discharge Summary: RODOLFO HAS PROGRESSED NICELY IN PT S/P Lt ANKLE ORIF 07/16/23. HE HAS EFFICIENT GAIT MECHANICS ON LEVEL GROUND AND STAIRS, HE IS MOTIVATED AND COMPLIANT W HIS HEP, AND HE HAS WFL AROM Lt ANKLE. HE IS ADV WITH SLS ACTVITIES/ DYNAMIC BALANCE EXER-> RESUMED REG ADLs, HIS LEFI AT EVAL WAS 35/80 AND TODAY AT D/C IT IS 79/80. THE Pt HAS MET HIS PT GOALS AND IS D/C'D THIS DATE. Electronically signed by: AL CHAPA,PT Please sign and return to therapist. Thank you for your referral.
== END 2023-12-06 15:18 | disposition home or self-care (01) ==
LOC: HO.PT 13:00
PROVIDERS: PCP Family Medicine; Visit Provider Physician Assistant
DX: Z87.81 Personal history of (healed) traumatic fracture (principal); Z98.890 Other specified postprocedural states
CPT/HCPCS: 97110; 97112; 97116; 97140; 97162; 97530